=== PATIENT | female | born 1990 | race Caucasian/White ===

== ENCOUNTER 2016-03-20 19:23 | Inpatient (IN) | payer OTHER ==
[2016-03-20] MEDS ORDERED: Penicillin G Potassium IV* 5,000,000 UNITS in NS 0.9% 100 ML* 100 ML IVPB ONE (20:11)
[2016-03-20] MEDS ORDERED: fentaNYL* 50 MCG/ML 2 ML VIAL (100 MCG VIAL) IV ONE (20:11)
[2016-03-20 20:47] LABS: Hematocrit 40 % (35-47); Hemoglobin 13.8 g/dl (12.0-16.0); Mean Corpuscular HGB Conc 34 g/dl (31-36); Mean Corpuscular Hemoglobin 29 pg (27-31); Mean Corpuscular Volume 83 fL (80-97); Mean Platelet Volume 8 um3 (7.4-10.4); Red Blood Count 4.86 10^6/ul (4.0-5.4); Red Cell Distribution Width 14 % (10.5-15); White Blood Count 12.6 10^3/ul (3.5-10.8)
[2016-03-20] MEDS ORDERED: OBEPIDURAL* 250 ML ONE (22:45)
[2016-03-20] MEDS ORDERED: EPHEDrine (Pressors)* 50 MG/ML VIAL IV PUSH PRN ×2 (23:36)
[2016-03-20] MEDS ORDERED: Famotidine TAB* 20 MG PO PRN (23:36)
[2016-03-20] MEDS ORDERED: Phenylephrine IV* 40 MCG/ML 10 ML SYRINGE IV PUSH PRN ×2 (23:36)
[2016-03-20] MEDS ORDERED: Sodium Citrate/Citric Acid* 15 ML UDC PO PRN (23:36)
[2016-03-20] MEDS ORDERED: OBEPIDURAL* 250 ML EPIDURAL SCH (23:45)
[2016-03-21] MEDS ORDERED: Penicillin G Potassium IV* 2,500,000 UNITS in NS 0.9% 100 ML* 100 ML IVPB SCH (03:00)
[2016-03-21] MEDS ORDERED: Oxytocin in LR* 20 UNITS/1,000 ML BAG IVPB ONE (06:45)
[2016-03-21] MEDS ORDERED: Dibucaine 1% 28.35 GM TUBE PR PRN (07:06)
[2016-03-21] MEDS ORDERED: Witch Hazel PAD* JAR TOPICAL PRN (07:06)
[2016-03-21] MEDS ORDERED: Oxytocin in LR* 20 UNITS/1,000 ML BAG IVPB SCH (08:00)
[2016-03-21] MEDS: Docusate CAP* 100 MG PO SCH ×3 (14:46→20:12)
[2016-03-21] MEDS: Ibuprofen TAB* 600 MG PO PRN ×2 (16:08→23:47)
[2016-03-21] MEDS: Acetaminophen TAB* 325 MG PO PRN (20:12)
[2016-03-22 06:44] LABS: Hematocrit 35 % (35-47); Hemoglobin 12.2 g/dl (12.0-16.0); Mean Corpuscular HGB Conc 34 g/dl (31-36); Mean Corpuscular Hemoglobin 29 pg (27-31); Mean Corpuscular Volume 84 fL (80-97); Mean Platelet Volume 8 um3 (7.4-10.4); Red Blood Count 4.23 10^6/ul (4.0-5.4); Red Cell Distribution Width 14 % (10.5-15); White Blood Count 10.2 10^3/ul (3.5-10.8)
[2016-03-22] MEDS ORDERED: Ferrous Gluconate TAB* 324 MG TAB PO SCH (09:00)
[2016-03-22] MEDS: oxyCODONE/Acetamin 5/325 MG* TAB PO PRN ×3 (09:00→21:00)
[2016-03-22] MEDS: Docusate CAP* 100 MG PO SCH ×3 (09:00→20:30)
[2016-03-23] MEDS: Docusate CAP* 100 MG PO SCH (08:21)
[2016-03-23] MEDS: oxyCODONE/Acetamin 5/325 MG* TAB PO PRN (08:21)
[2016-03-23 09:04] VITALS: BP 116/60
[2016-03-23] MEDS: Acetaminophen TAB* 325 MG PO PRN (09:05)
[2016-03-23] MEDS: Ibuprofen TAB* 600 MG PO PRN (12:20)
== END 2016-03-23 13:03 | disposition home or self-care (01) | DRG 560 ==
LOC: MCHOBOUT 19:23 → MCHOB 22:26
PROVIDERS: ADMIT Midwife; ATTEND Midwife
PROC: 10E0XZZ Delivery of Products of Conception, External Approach (ICD-10-PCS; principal; 2016-03-21)
PROC: 10907ZC Drainage of Amniotic Fluid, Therapeutic from Products of Conception, Via Natural or Artificial Opening (ICD-10-PCS; 2016-03-21)
PROC: 0HQ9XZZ Repair Perineum Skin, External Approach (ICD-10-PCS; 2016-03-21)
DX: O99.824 Streptococcus B carrier state complicating childbirth (principal); O99.344 Other mental disorders complicating childbirth; F41.9 Anxiety disorder, unspecified; O70.0 First degree perineal laceration during delivery; O69.81X0 Labor and delivery complicated by cord around neck, without compression, not applicable or unspecified; O77.0 Labor and delivery complicated by meconium in amniotic fluid; Z3A.40 40 weeks gestation of pregnancy; Z37.0 Single live birth
CPT/HCPCS: 36415; 85025; 85027; 86850; 86900; 86901; A9270-GY; J2540; J3010

== ENCOUNTER 2016-12-22 15:14 | Emergency (ER) | payer OTHER ==
[2016-12-22 17:45] LABS: Hematocrit 39 % (35-47); Hemoglobin 13.5 g/dl (12.0-16.0); Mean Corpuscular HGB Conc 35 g/dl (31-36); Mean Corpuscular Hemoglobin 29 pg (27-31); Mean Corpuscular Volume 84 fL (80-97); Mean Platelet Volume 8 um3 (7.4-10.4); Red Blood Count 4.59 10^6/ul (4.0-5.4); Red Cell Distribution Width 14 % (10.5-15); White Blood Count 9.2 10^3/ul (3.5-10.8)
[2016-12-22 18:06] LABS: Albumin 4.3 g/dL (3.2-5.2); Calcium 9.5 mg/dL (8.6-10.3); EGFR Non-African American 125.2 (>60); Globulin 2.3 g/dL (2-4); Potassium 3.6 mmol/L (3.5-5.0); Total Bilirubin 0.4 mg/dL (0.2-1.0); Total Protein 6.6 g/dL (6.4-8.9)
--- NOTE | 2016-12-22 19:28 | RAD ---
INDICATION: Lower abdominal pain possible . COMPARISON: There are no prior studies available for comparison. TECHNIQUE: Multiple real-time transvaginal images of the pelvis were obtained. FINDINGS: This exam demonstrates an early intrauterine . A yolk sac is visualized. No pole or heartbeat is seen. There is a large subchorionic hematoma surrounding greater than 50% of the gestational sac. The mean sac diameter measured 1.13 cm corresponding to an estimated gestational age of 5 weeks 6 days. The right ovary measured 2.6 x 1.6 x 2.6 cm. The left ovary measured 2.2 x 2.2 x 3.9 cm. There is vascular flow within both ovaries. There is a complex left ovarian cyst most consistent with a corpus luteum cyst measuring 2.2 x 2.4 x 2.0 cm. There is a trace amount of free intraperitoneal fluid in the cul-de-sac. IMPRESSION: EARLY INTRAUTERINE . NO HEARTBEAT IS SEEN LIKELY DUE TO EARLY STAGE OF . THERE IS ALSO A LARGE SUBCHORIONIC HEMATOMA. RECOMMEND A FOLLOW-UP TRANSVAGINAL PELVIC ULTRASOUND IN 1-2 WEEKS TIME TO ASSESS FOR VIABILITY.
[2016-12-22 21:18] LABS: Urine Bacteria Absent (Absent); Urine Bilirubin Negative (Negative); Urine Glucose Negative (Negative); Urine Nitrite Negative (Negative)
[2016-12-22 21:40] VITALS: BP 112/62
--- NOTE | 2017-01-03 17:12 | ED ---
Mary Anaya Abhishek, scribed for Stef Hayes MD on 12/22/16 at 1642 . GI/ HPI - HPI Summary HPI Summary: This patient is a 26 year old F presenting to [facility] accompanied by male with a c / of abd on the right flank and vaginal bleeding since yesterday. The CC is described as worse since yesterday night. The patient rates the pain 6/10 in severity. Symptoms aggravated by nothing. Symptoms alleviated by nothing. Patient reports positive test, hematuria, bloating, /P:2 /A:0, dizziness, mild syncope described as fainting. Patient denies clotting. PMHx includes negative ectopic . FHx of anxiety, depression, hypothyroidism , cancer. SHx no alcohol and no smoking. - History of Current Complaint Chief Complaint: EDOBProblems Time Seen by Provider: 12/22/16 16:27 Stated Complaint: ABD PAIN/VAGINAL BLEEDING/POS PREG TEST Hx Obtained From: Patient Onset/Duration: Started Days Ago - yesterday, Still Present, Worse Since - yesterday Severity: Moderate Current Severity: Moderate Pain Intensity: 6 Location of Pain: Flank - abd Pain Characteristics: Sharp Associated Signs and Symptoms: Positive: Dizziness, Syncope - "fainting", Other : - hematuria, bloating; Negative clotting Additional Signs & Symptoms: Positive: Vaginal Bleeding, Positive Test Aggravating Factor(s): Nothing Alleviating Factor(s): Nothing - Allergy/Home Medications Allergies/Adverse Reactions: Allergies Allergy/AdvReac Type Severity Reaction Status Date / Time No Known Allergies Allergy Verified 03/20/16 19:44 PMH/Surg Hx/FS Hx/Imm Hx History: Reports: Other Problems/Disorders - Negative ectopic Psychiatric History: Reports: Hx Anxiety - on klonopin until , Hx Depression Infectious Disease History: No Infectious Disease History: Denies: Traveled Outside the [place] in Last 30 Days - Family History Known Family History: Positive: Other - anxiety, depression, hypothyroidism, cancer - Social History Alcohol Use: None Substance Use Type: Reports: None Smoking Status (MU): Never Smoked Tobacco Review of Systems Constitutional: Negative Eyes: Negative ENT: Negative Positive: Other - Negative clotting Respiratory: Negative Positive: Abdominal Pain - Right flank (sharp), Other - bloating Positive: hematuria, other - 3, Para 2, 0, vaginal bleeding Skin: Negative Neurological: Other - dizziness Positive: Syncope - described as "fainting" Psychological: Normal All Other Systems Reviewed And Are Negative: Yes Physical Exam - Summary Physical Exam Summary: Constitutional: Well-developed, Well-nourished, Alert. (-) Distressed Skin: Warm, Dry HENT: Normocephalic; Atraumatic Eyes: Conjunctiva normal Neck: Musculoskeletal ROM normal neck. (-) JVD, (-) Stridor, (-) Tracheal deviation Cardio: Rhythm regular, rate normal, Heart sounds normal; Intact distal pulses; The pedal pulses are 2+ and symmetric. Radial pulses are 2+ and symmetric. (-) Murmur Pulmonary/Chest wall: Effort normal. (-) Respiratory distress, (-) Wheezes, (-) Rales Abd: Soft, (-) Mild right CVA tenderness, No significant abd tenderness, Musculoskeletal: (-) Edema Lymph: (-) Cervical adenopathy Neuro: Alert, Oriented x3 Psych: Mood and affect Normal Triage Information Reviewed: Yes Vital Signs On Initial Exam: Initial Vitals Temp Pulse Resp BP Pulse Ox 98.6 F 104 20 136/87 97 12/22/16 15:22 12/22/16 15:22 12/22/16 15:22 12/22/16 15:22 12/22/16 15:22 Vital Signs Reviewed: Yes Diagnostics - Vital Signs Vital Signs Temp Pulse Resp BP Pulse Ox 12/22/16 15:22 98.6 F 104 20 136/87 97 - Laboratory Lab Results: Lab Results 12/22/16 12/22/16 12/22/16 Range/Units 17:35 17:35 17:35 WBC 9.2 (3.5-10.8) 10^3/ul RBC 4.59 (4.0-5.4) 10^6/ul Hgb 13.5 (12.0-16.0) g/dl Hct 39 (35-47) % MCV 84 (80-97) fL MCH 29 (27-31) pg MCHC 35 (31-36) g/dl RDW 14 (10.5-15) % Plt Count 321 (150-450) 10^3/ul MPV 8 (7.4-10.4) um3 Sodium 134 (133-145) mmol/L Potassium 3.6 (3.5-5.0) mmol/L Chloride 104 (101-111) mmol/L Carbon Dioxide 24 (22-32) mmol/L Anion Gap 6 (2-11) mmol/L BUN 13 (6-24) mg/dL Creatinine 0.59 (0.51-0.95) mg/dL Est GFR ( Amer) 161.0 (>60) Est GFR (Non-Af Amer) 125.2 (>60) BUN/Creatinine Ratio 22.0 H (8-20) Glucose 109 H (70-100) mg/dL Calcium 9.5 (8.6-10.3) mg/dL Total Bilirubin 0.40 (0.2-1.0) mg/dL AST 14 (13-39) U/L ALT 11 (7-52) U/L Alkaline Phosphatase 81 (34-104) U/L Total Protein 6.6 (6.4-8.9) g/dL Albumin 4.3 (3.2-5.2) g/dL Globulin 2.3 (2-4) g/dL Albumin/Globulin Ratio 1.9 (1-3) Beta HCG, Quant 74967.00 mIU/mL Urine Color Urine Appearance Urine pH (5-9) Ur Specific [place] (1.010-1.030) Urine Protein (Negative) Urine Ketones (Negative) Urine Blood (Negative) Urine Nitrate (Negative) Urine Bilirubin (Negative) Urine Urobilinogen (Negative) Ur Leukocyte Esterase (Negative) Urine WBC (Auto) (Absent) Urine RBC (Auto) (Absent) Ur Squamous Epith Cells (Absent) Urine Bacteria (Absent) Urine Glucose (Negative) Blood Type O Positive Antibody Screen Negative 12/22/16 Range/Units 20:50 WBC (3.5-10.8) 10^3/ul RBC (4.0-5.4) 10^6/ul Hgb (12.0-16.0) g/dl Hct (35-47) % MCV (80-97) fL MCH (27-31) pg MCHC (31-36) g/dl RDW (10.5-15) % Plt Count (150-450) 10^3/ul MPV (7.4-10.4) um3 Sodium (133-145) mmol/L Potassium (3.5-5.0) mmol/L Chloride (101-111) mmol/L Carbon Dioxide (22-32) mmol/L Anion Gap (2-11) mmol/L BUN (6-24) mg/dL Creatinine (0.51-0.95) mg/dL Est GFR ( Amer) (>60) Est GFR (Non-Af Amer) (>60) BUN/Creatinine Ratio (8-20) Glucose (70-100) mg/dL Calcium (8.6-10.3) mg/dL Total Bilirubin (0.2-1.0) mg/dL AST (13-39) U/L ALT (7-52) U/L Alkaline Phosphatase (34-104) U/L Total Protein (6.4-8.9) g/dL Albumin (3.2-5.2) g/dL Globulin (2-4) g/dL Albumin/Globulin Ratio (1-3) Beta HCG, Quant mIU/mL Urine Color Yellow Urine Appearance Cloudy Urine pH 7.0 (5-9) Ur Specific [place] 1.027 (1.010-1.030) Urine Protein Negative (Negative) Urine Ketones Negative (Negative) Urine Blood Negative (Negative) Urine Nitrate Negative (Negative) Urine Bilirubin Negative (Negative) Urine Urobilinogen Negative (Negative) Ur Leukocyte Esterase 1+ H (Negative) Urine WBC (Auto) Trace(0-5/hpf) (Absent) Urine RBC (Auto) Absent (Absent) Ur Squamous Epith Cells Present H (Absent) Urine Bacteria Absent (Absent) Urine Glucose Negative (Negative) Blood Type Antibody Screen Result Diagrams: 12/22/16 17:35 12/22/16 17:35 Lab Statement: Any lab studies that have been ordered have been reviewed, and results considered in the medical decision making process. - Ultrasound No standard instances Ultrasound Interpretation Completed By: Radiologist - Transvaginal US reveals EARLY INTRAUTERINE . NO HEARTBEAT IS SEEN LIKELY DUE TO EARLY STAGE OF . THERE IS ALSO A LARGE SUBCHORIONIC HEMATOMA. RECOMMEND A FOLLOW-UP TRANSVAGINAL PELVIC ULTRASOUND IN 1-2 WEEKS TIME TO ASSESS FOR VIABILITY. ED physician has reviewed this radiology report and agrees. Re-Evaluation - Re-Evaluation 4413 Re-Evaluation Time: 18:33 Change: Unchanged GIGU Course/Dx - Course Course Of Treatment: A 26-year-old (F) presents to the ED with a CC of vaginal bleeding and abd pain since yesterday Patient reports positive test, hematuria, bloating, /P:2 /A:0, dizziness, mild syncope described as fainting. Patient denies clotting. Transvaginal US reveals EARLY INTRAUTERINE . NO HEARTBEAT IS SEEN LIKELY DUE TO EARLY. STAGE OF . THERE IS ALSO A LARGE SUBCHORIONIC HEMATOMA. RECOMMEND A FOLLOW-UP TRANSVAGINAL PELVIC ULTRASOUND IN 1-2 WEEKS TIME TO ASSESS FOR VIABILITY. Dx of Threatened miscarriage and prescribe andrew vitamins. Patient will be discharged (with follow up from Dr. Navas (OB) within 2 to 3 days). Pt is agreeable with this plan. - Diagnoses Provider Diagnoses: Threatened miscarriage in early Discharge - Discharge Plan Condition: Good Disposition: HOME Prescriptions: Vitamin TAB* 1 tab PO DAILY #30 tab Patient Education Materials: Threatened Miscarriage (ED) Referrals: Doreen Navas MD [Medical Doctor] - (follow up 2 to 3 days) Ana Luisa Levine MD [Primary Care Provider] - Additional Instructions: RETURN TO THE EMERGENCY DEPARTMENT FOR CHANGING OR WORSENING SYMPTOMS The documentation as recorded by the Mary newton Abhishek accurately reflects the service I personally performed and the decisions made by , Stef Hayes MD.
== END 2016-12-22 21:38 | disposition home or self-care (01) ==
LOC: ED 15:14
DX: O20.0 Threatened abortion (principal); Z3A.00 Weeks of gestation of pregnancy not specified; R42 Dizziness and giddiness; R14.0 Abdominal distension (gaseous); R31.9 Hematuria, unspecified; F41.9 Anxiety disorder, unspecified; F32.9 Major depressive disorder, single episode, unspecified
CPT/HCPCS: 36415; 76817; 80053; 81003; 81015; 84702; 85027; 86850; 86900; 86901; 87086; 99282

== ENCOUNTER 2017-08-08 08:12 | Inpatient (IN) | payer OTHER ==
[2017-08-08] MEDS ORDERED: Dinoprostone* 10 MG VAG.SUPP VAGINAL ONE (09:02)
--- NOTE | 2017-08-08 10:03 | HP ---
General Information - General Information Maternal Age: 27 Grav: 3 Para: 2 SAB: 0 IEA: 0 Estimated Due Date: 08/15/17 Determined By: Early Ultrasound Gestational Age in Weeks and Days: 39 Weeks and 0 Days Maternal Blood Type and Rh: O Positive - Results this Serology/RPR Result: Non-Reactive Rubella Result: Immune HBsAg Result: Negative HIV Result: Negative GBS Culture Result: Negative Past Medical History Delivery History: Hx Uncomplicated Vaginal Delivery - (2014) 7'11", ( 2016), 8'2" Pertinent Past Medical History: See Records - Hx anxiety/depression Pertinent Past Surgical History: None Pertinent Family History: Non-Contributory - Antepartal Records Antepartal Records: Reviewed, Complicated by: - GBS +; IUGR Review of Systems Constitutional: Comfortable CV Complaint: No Respiratory: Shortness of Breath: No Gastrointestinal: No Nausea/Vomiting Genitourinary: No Dysuria, No Bleeding, No Leaking Fluid Musculoskeletal: No Complaint Neurological: No Headache, No Visual Changes Movement: Normal Exam Allergies/Adverse Reactions: Allergies No Known Allergies Allergy (Verified 08/08/17 08:50) T 98.2; P 105; R20; BP 116/65 - Measurements Height: 5 ft 2 in Weight: 146 lb Weight in lbs: 146 Body Mass Index (BMI): 26.6 Pre- Weight: 125 lb Weight Gained This : 21 lbs and 0 ozs - Exam Abdomen: No Upper Quadrant Pain Breast: Breast Exam Deferred CVA: No CVA Tenderness Extremities: No Edema Heart: Normal Rhythm/Heart Sounds HEENT: No Significant Findings Lungs: Clear Bilaterally Rectal: Rectal Exam Deferred Reflexes: DTR 2+ Thyroid: No Thyromegaly - Abdominal Exam Abdomen Exam: Non-Tender, Fundal Height Consistent with Dates - Ultrasound/Biophysical Profile Ultrasound Status: Not Done Targeted Exam Findings See L&D Outpatient Visit Provider Note for Findings: N/A Estimated Weight: Growth sono 08/06- " Cervical Exam: 1cm Effacement: Thick Station: -3 Presenting Part: Vertex Membrane Status: Intact Bleeding/Discharge: None EFM Findings - External Monitor Findings Baseline Heart Rate: 145 External Monitor Findings: Accelerations Present, No Pattern of Variable or Late Decelerations, Variability Moderate, Baseline Stable Contractions: Irregular Assessment/Plan - Reason for Visit Reason for Visit: 39 week induction of labor for suspected IUGR - Obstetrical Risk Factors Obstetrical Risk Factors: GBS Positive - Plan Plan: Induction, Cervical Ripening - Date/Time of Admission Date of Admission: 08/08/17 Time of Admission: 10:03
[2017-08-08] MEDS ORDERED: Penicillin G Potassium IV* 5,000,000 UNITS in NS 0.9% 100 ML* 100 ML IVPB ONE (18:49)
[2017-08-08 19:15] LABS: Hematocrit 37 % (35-47); Hemoglobin 12.9 g/dl (12.0-16.0); Mean Corpuscular HGB Conc 35 g/dl (31-36); Mean Corpuscular Hemoglobin 27 pg (27-31); Mean Corpuscular Volume 77 fL (80-97); Mean Platelet Volume 8.4 um3 (7.4-10.4); Platelet Count 235 10^3/ul (150-450); Red Blood Count 4.83 10^6/ul (4.0-5.4); Red Cell Distribution Width 15 % (10.5-15); White Blood Count 10.7 10^3/ul (3.5-10.8)
[2017-08-08] MEDS ORDERED: fentaNYL* 50 MCG/ML 2 ML VIAL (100 MCG VIAL) IV ONE (20:02)
[2017-08-08] MEDS ORDERED: fentaNYL* 50 MCG/ML 2 ML VIAL (100 MCG VIAL) ONE (20:06)
[2017-08-08] MEDS ORDERED: OBEPIDURAL* 250 ML EPIDURAL ONE (20:58)
[2017-08-08] MEDS ORDERED: Sodium Citrate/Citric Acid* 15 ML UDC PO PRN (21:44)
[2017-08-08] MEDS ORDERED: Famotidine TAB* 20 MG PO PRN (21:44)
[2017-08-08] MEDS ORDERED: Phenylephrine IV* 40 MCG/ML 10 ML SYRINGE IV PUSH PRN (21:44)
[2017-08-08] MEDS ORDERED: OBEPIDURAL* 250 ML EPIDURAL SCH (22:00)
[2017-08-08] MEDS ORDERED: Oxytocin in LR* 20 UNITS/1,000 ML BAG IVPB ONE (22:04)
[2017-08-08] MEDS ORDERED: Acetaminophen TAB* 325 MG PO PRN (22:22)
[2017-08-08] MEDS ORDERED: Witch Hazel PAD* JAR TOPICAL PRN (22:22)
[2017-08-08] MEDS ORDERED: Misoprostol TAB* 200 MCG PR ONE (22:22)
[2017-08-08] MEDS ORDERED: Glycerin ADULT SUPP PR PRN (22:22)
[2017-08-08] MEDS ORDERED: Dibucaine 1% 28.35 GM TUBE PR PRN (22:22)
[2017-08-08] MEDS ORDERED: Oxytocin in LR* 20 UNITS/1,000 ML BAG IVPB SCH (23:00)
[2017-08-08] MEDS ORDERED: Penicillin G Potassium IV* 2,500,000 UNITS in NS 0.9% 100 ML* 100 ML IVPB SCH (23:30)
[2017-08-09] MEDS: Ibuprofen TAB* 600 MG PO PRN ×4 (00:50→22:48)
[2017-08-09 07:08] LABS: ABS Basophils 0.1 10^3/ul (0-0.2); ABS Eosinophils 0.1 10^3/ul (0-0.6); ABS Neutrophils 8.8 10^3/ul (1.5-7.7); ABS Nucleated RBC 0 10^3/ul; Eosinophil % 0.9 % (0-6); Hematocrit 34 % (35-47); Hemoglobin 11.4 g/dl (12.0-16.0); Mean Corpuscular HGB Conc 34 g/dl (31-36); Mean Corpuscular Hemoglobin 26 pg (27-31); Mean Corpuscular Volume 78 fL (80-97); Nucleated Red Blood Cells % 0; Platelet Count 206 10^3/ul (150-450); Red Blood Count 4.33 10^6/ul (4.0-5.4); Red Cell Distribution Width 15 % (10.5-15)
[2017-08-09] MEDS ORDERED: Ferrous Gluconate TAB* 324 MG TAB PO SCH (09:00)
[2017-08-09] MEDS: Docusate CAP* 100 MG PO SCH ×3 (09:17→21:18)
[2017-08-09] MEDS: Simethicone TAB* 80 MG TAB.CHEW PO SCH ×2 (09:34→12:55)
[2017-08-10 08:06] VITALS: BP 109/66
[2017-08-10] MEDS: Ibuprofen TAB* 600 MG PO PRN (08:55)
[2017-08-10] MEDS: Docusate CAP* 100 MG PO SCH ×2 (08:56→14:33)
== END 2017-08-10 19:40 | disposition home or self-care (01) | DRG 560 ==
LOC: MCHOBOUT 08:12 → MCHOB 09:04
PROVIDERS: ADMIT Midwife; ATTEND Midwife
PROC: 10E0XZZ Delivery of Products of Conception, External Approach (ICD-10-PCS; principal; 2017-08-08)
PROC: 3E033VJ Introduction of Other Hormone into Peripheral Vein, Percutaneous Approach (ICD-10-PCS; 2017-08-08)
PROC: 10907ZC Drainage of Amniotic Fluid, Therapeutic from Products of Conception, Via Natural or Artificial Opening (ICD-10-PCS; 2017-08-08)
DX: O36.5930 Maternal care for other known or suspected poor fetal growth, third trimester, not applicable or unspecified (principal); O72.1 Other immediate postpartum hemorrhage; O99.824 Streptococcus B carrier state complicating childbirth; O99.344 Other mental disorders complicating childbirth; F32.9 Major depressive disorder, single episode, unspecified; F41.9 Anxiety disorder, unspecified; Z3A.39 39 weeks gestation of pregnancy; Z37.0 Single live birth
CPT/HCPCS: 36415; 85025; 85027; 86850; 86900; 86901; A9270-GY; J2540; J3010

== ENCOUNTER 2018-12-09 23:31 | Inpatient (IN) | payer OTHER ==
[2018-12-10] MEDS ORDERED: Buffered Lidocaine 1% SYRIN* 1 ML/SYRINGE INTRADERM ONE (00:26)
[2018-12-10] MEDS ORDERED: Lactated Ringers 1000 ML Bag* 1,000 ML IV ONE ×2 (00:26→01:20)
[2018-12-10] MEDS ORDERED: Penicillin G Potassium IV* 5,000,000 UNITS in NS 0.9% 100 ML* 100 ML IVPB ONE (00:30)
[2018-12-10 00:33] LABS: ABS Basophils 0.1 10^3/ul (0-0.2); ABS Eosinophils 0.1 10^3/ul (0-0.6); ABS Lymphocytes 2.7 10^3/ul (1.0-4.8); ABS Monocytes 0.7 10^3/ul (0-0.8); ABS Neutrophils 6.3 10^3/ul (1.5-7.7); Eosinophil % 0.6 %; Hematocrit 36 % (35-47); Hemoglobin 12.3 g/dL (12.0-16.0); Lymphocyte % 27.1 %; Mean Corpuscular HGB Conc 34 g/dL (31-36); Mean Corpuscular Hemoglobin 26 pg (27-31); Mean Corpuscular Volume 76 fL (80-97); Mean Platelet Volume 7.9 fL (7.4-10.4); Nucleated Red Blood Cells % 0.1; Platelet Count 244 10^3/uL (150-450); Red Blood Count 4.78 10^6 /uL (3.70-4.87); Red Cell Distribution Width 16 % (10-15); White Blood Count 9.8 10^3/uL (3.5-10.8)
--- NOTE | 2018-12-10 00:38 | HP ---
General Information - Reason for Visit Patient presents to Labor and delivery in Labor. - General Information Maternal Age: 28 Grav: 3 Para: 2 SAB: 0 IEA: 0 Estimated Due Date: 12/20/18 Determined By: Early Ultrasound Gestational Age in Weeks/Days: 38 05/15 Maternal Blood Type and Rh: O Positive - Results this Serology/RPR Result: Non-Reactive Rubella Result: Immune HBsAg Result: Negative HIV Result: Negative GBS Culture Result: Positive Past Medical History Delivery History: See Records Pertinent Past Medical History: See Records Past Medical History Comment: Depression/Anxiety Pertinent Past Surgical History: See Records Past Surgical History Comment: None Pertinent Family History: See Records - Antepartal Records Antepartal Records: Reviewed, Uncomplicated Review of Systems Constitutional: Uncomfortable CV Complaint: No Respiratory: Shortness of Breath: No Gastrointestinal: No Nausea/Vomiting, Normal Bowel Movement Genitourinary: No Dysuria, No Bleeding, No Leaking Fluid Musculoskeletal: No Epigastric Pain, Contractions Neurological: No Headache, No Visual Changes Movement: Normal Exam Allergies/Adverse Reactions: Allergies No Known Allergies Allergy (Verified 12/09/18 23:56) Vital Signs 12/10/18 00:11 Temperature 98.4 F Pulse Rate 128 Respiratory 20 Rate Blood Pressure 138/86 (mmHg) O2 Sat by Pulse 99 Oximetry - Measurements Height: 5 ft 2 in Weight: 153 lb Weight in lbs: 153.500552 Body Mass Index (BMI): 28.0 Pre- Weight: 125 lb Weight Gained This : 28 lbs and 0 ozs - Exam Breast: Breast Exam Deferred CVA: No CVA Tenderness Extremities: No Edema Heart: Normal Rhythm/Heart Sounds HEENT: No Significant Findings Lungs: Clear Bilaterally Rectal: Rectal Exam Deferred Reflexes: DTR 2+ Thyroid: No Thyromegaly - Abdominal Exam Abdomen Exam: Non-Tender, Fundal Height Consistent with Dates - Ultrasound/Biophysical Profile Ultrasound Status: Not Done Biophysical Profile: Normal Reactive NST Targeted Exam Findings See L&D Outpatient Visit Provider Note for Findings: N/A Cervical Exam: 3cm Effacement: 70% Station: -1 Presenting Part: Vertex Membrane Status: Intact Bleeding/Discharge: None EFM Findings - External Monitor Findings Baseline Heart Rate: 140 External Monitor Findings: Accelerations Present, No Pattern of Variable or Late Decelerations Contractions: Regular - Q 2-3 minutes apart, Strong, 45-90 Seconds Assessment/Plan - Assessment at 38 3/7 weeks in spontaneous labor. - Obstetrical Risk Factors Obstetrical Risk Factors: GBS Positive - Plan Plan: IV Hydration, Antibiotic Prophylaxis, Admit - Anticipate Vaginal Delivery - Date/Time of Admission Date of Admission: 12/10/18 Time of Admission: 00:30
[2018-12-10] MEDS ORDERED: OBEPIDURAL* 0 ML EPIDURAL ONE (00:44)
[2018-12-10 00:45] LABS: Urine Benzodiazepine Screen None Detected (None Detect); Urine Opiates Screen None Detected (None Detect)
[2018-12-10] MEDS ORDERED: Bupivacaine 0.25% SDV PF* 10 ML VIAL INJ ONE (00:54)
[2018-12-10] MEDS ORDERED: fentaNYL* 50 MCG/ML 2 ML VIAL (100 MCG VIAL) ONE (00:54)
[2018-12-10] MEDS ORDERED: Lactated Ringers 1000 ML Bag* 1,000 ML IV SCH ×3 (01:00→04:00)
[2018-12-10] MEDS ORDERED: fentaNYL* 50 MCG/ML 2 ML VIAL (100 MCG VIAL) IV ONE (01:02)
[2018-12-10] MEDS ORDERED: Phenylephrine 40 MCG/ML SYRINGE IV PUSH PRN ×2 (01:20)
[2018-12-10] MEDS ORDERED: Sodium Citrate/Citric Acid* 15 ML UDC PO PRN (01:20)
[2018-12-10] MEDS ORDERED: Lactated Ringers 1000 ML Bag* 500 ML IV PRN ×2 (01:20)
[2018-12-10] MEDS ORDERED: Famotidine TAB* 20 MG PO PRN (01:20)
[2018-12-10] MEDS ORDERED: OBEPIDURAL* 250 ML EPIDURAL SCH (02:00)
[2018-12-10] MEDS ORDERED: Oxytocin in LR* 0 UNITS/0 ML BAG IVPB ONE (02:16)
[2018-12-10] MEDS ORDERED: Witch Hazel PAD* JAR TOPICAL PRN (03:19)
[2018-12-10] MEDS ORDERED: Glycerin ADULT SUPP PR PRN (03:19)
[2018-12-10] MEDS ORDERED: Dibucaine 1% 28.35 GM TUBE PR PRN (03:19)
--- NOTE | 2018-12-10 03:24 | PROCNOTE ---
[facility] OB: Delivery Note - Delivery A Date of : 12/10/18 Time of : 03:10 Sex: Male Weight at : 8 lb 10 oz Score 1 Minute: 8 Score 5 Minutes: 9 Gestational Age in Weeks and Days at Delivery: 38 Weeks and 4 Days Delivery Method: Spontaneous Vaginal Labor: Spontaneous Did Patient attempt ?: N/A, No Previous Amniotic Fluid: Clear Estimated Blood Loss: 300 Anesthesia/Analgesia: CEI for Labor Delivered By: Lasha Will - Nursery Level of Nursery: Regular/Bedside - Perineum Perineal Injury: None/Intact Perineal Repair: None - Events Delivery Events of Note: Full Course of Antibiotics
[2018-12-10] MEDS: Ibuprofen TAB* 600 MG PO PRN ×3 (04:00→17:43)
[2018-12-10] MEDS ORDERED: OXYTOCIN* 10 UNITS/ML 1 ML VIAL ONE (04:12)
[2018-12-10] MEDS ORDERED: Penicillin G Potassium IV* 2,500,000 UNITS in NS 0.9% 100 ML* 100 ML IVPB SCH (04:30)
[2018-12-10] MEDS ORDERED: Simethicone TAB* 80 MG TAB.CHEW PO SCH (08:30)
[2018-12-10] MEDS: Acetaminophen TAB* 325 MG PO PRN ×3 (08:34→20:32)
[2018-12-10] MEDS: Docusate CAP* 100 MG PO SCH ×3 (08:34→20:32)
[2018-12-11] MEDS: Ibuprofen TAB* 600 MG PO PRN ×3 (00:09→21:29)
[2018-12-11 05:50] LABS: ABS Basophils 0.1 10^3/ul (0-0.2); ABS Eosinophils 0.2 10^3/ul (0-0.6); ABS Lymphocytes 2.9 10^3/ul (1.0-4.8); ABS Monocytes 0.8 10^3/ul (0-0.8); ABS Neutrophils 5.3 10^3/ul (1.5-7.7); Eosinophil % 1.9 %; Hematocrit 29 % (35-47); Hemoglobin 9.9 g/dL (12.0-16.0); Lymphocyte % 31.4 %; Mean Corpuscular HGB Conc 34 g/dL (31-36); Mean Corpuscular Hemoglobin 26 pg (27-31); Mean Corpuscular Volume 76 fL (80-97); Mean Platelet Volume 7.9 fL (7.4-10.4); Nucleated Red Blood Cells % 0.1; Platelet Count 219 10^3/uL (150-450); Red Blood Count 3.86 10^6 /uL (3.70-4.87); Red Cell Distribution Width 16 % (10-15); White Blood Count 9.2 10^3/uL (3.5-10.8)
[2018-12-11] MEDS: Docusate CAP* 100 MG PO SCH ×2 (07:55→21:22)
[2018-12-11] MEDS: Ferrous Gluconate TAB* 324 MG TAB PO SCH ×2 (07:55→21:22)
[2018-12-11] MEDS: Acetaminophen TAB* 325 MG PO PRN (18:33)
[2018-12-11] MEDS ORDERED: Varicella Virus Vaccine Live* 0.5 ML VIAL SUBCUT ONE (21:00)
[2018-12-11] MEDS ORDERED: Influenza VAC *QUAD* 2019-20* 0.5 ML SYRINGE IM ONE (21:00)
[2018-12-11] MEDS ORDERED: Sertraline* 50 MG TAB PO SCH (21:00)
[2018-12-12] MEDS: Ibuprofen TAB* 600 MG PO PRN ×2 (05:30→13:49)
[2018-12-12 07:58] VITALS: BP 106/59
[2018-12-12] MEDS: Acetaminophen TAB* 325 MG PO PRN ×2 (08:21→13:50)
[2018-12-12] MEDS: Docusate CAP* 100 MG PO SCH ×3 (08:21→13:50)
[2018-12-12] MEDS: Ferrous Gluconate TAB* 324 MG TAB PO SCH (09:26)
== END 2018-12-12 14:00 | disposition home or self-care (01) | DRG 560 ==
LOC: MCHOBOUT 23:31 → MCHOB 12-10 00:02
PROVIDERS: ADMIT Obstetrics & Gynecology; ATTEND Obstetrics & Gynecology
PROC: 10E0XZZ Delivery of Products of Conception, External Approach (ICD-10-PCS; principal; 2018-12-10)
PROC: 10907ZC Drainage of Amniotic Fluid, Therapeutic from Products of Conception, Via Natural or Artificial Opening (ICD-10-PCS; 2018-12-10)
DX: O60.20X0 Term delivery with preterm labor, unspecified trimester, not applicable or unspecified (principal); Z37.0 Single live birth; O99.824 Streptococcus B carrier state complicating childbirth; O99.344 Other mental disorders complicating childbirth; F41.8 Other specified anxiety disorders; O90.81 Anemia of the puerperium; D64.9 Anemia, unspecified; Z3A.38 38 weeks gestation of pregnancy
CPT/HCPCS: 36415; 80307; 85025; 86850; 86900; 86901; 90686; A9270-GY; J2540; J2590; J3010; J3490